=== PATIENT | male | born 1945 | race Caucasian/White ===

== ENCOUNTER 2017-08-07 14:36 | Observation (INO) ==
[2017-08-07 15:23] LABS: Basophils % 0.3 % (0.1-2.0); Eosinophils # 0.4 K/mm3 (0.0-0.4); Eosinophils % 6.6 % (0.1-12.0); Hematocrit 50.7 % (42.0-52.0); Hemoglobin 16.6 g/dL (14.1-18.0); Lymphocytes # 0.3 K/mm3 (0.7-4.5); Lymphocytes % 5.8 K/mm3 (10-50); Mean Corpuscular HGB Conc 32.8 g/dL (31.8-35.4); Mean Corpuscular Hemoglobin 29.2 pg (27.0-31.2); Mean Corpuscular Volume 89.2 fl (80-94); Mean Platelet Volume 7.8 fl (7.4-10.4); Monocytes # 0.2 K/mm3 (0.1-1.0); Neutrophils # 4.8 K/mm3 (1.8-7.8); Neutrophils % 83.3 % (37.0-80.0); Platelet Count 165 K/mm3 (142-424); Red Blood Count 5.69 M/mm3 (4.60-6.20); Red Cell Distribution Width 12.7 % (11.5-17.5); White Blood Count 5.8 K/mm3 (4.8-10.8)
[2017-08-07 15:29] LABS: Albumin Level 3.9 gm/dL (3.4-5.0); Anion Gap 16.6 mEq/L (5-15); Bilirubin,Total 0.9 mg/dL (0.2-1.0); Calcium 8.7 mg/dL (8.5-10.1); Globulin 3.9 gm/dl (1.3-3.2); Potassium 3.6 mmoL/L (3.5-5.1); Total Protein,Serum 7.8 gm/dL (6.4-8.2)
--- NOTE | 2017-08-07 16:50 | History & Physical Report ---
*Admission Date: 08/07/17 *Chief complaint: rash, fever and body aches *History of present illness: 72 year old white male with a history of HTN, hyperlipidemia and BPH presented to PCP office with generalized nonpruritic erythematous rash, body aches, fever and malaise. Patient reports acute onset of fever and body aches 4 days ago. Denies any ENT, respiratory, urinary or GI symptoms. He woke up today with a rash on his face, neck, trunk and extremities. Patient recently saw Dr. Meeks for FU on elevated PSA/BPH. He had a normal prostate biopsy last year. On 07/26 at FU he was started on Bactrim DS x 30 days in an attempt to decrease his PSA. UA at that time was normal. See urology note. In the office today, patient was noted to be febrile and in appeared uncomfortable. He was admitted to observation for further evaluation. [facility] History I have reviewed the patient's past medical history: Yes Medical History: Reports:: Hyperlipidemia, Hypertension Denies:: Cancer, Diabetes Mellitus Type 1, Diabetes Mellitus Type 2, MRSA Laterality Cases: Bilateral: Tonsillectomy Other Surgeries: Yes: Appendectomy Amputation: No Fractures: No - *Social History Educational Level: Completed High School Smoking Status: Former smoker Alcohol Intake: never Occupational Status: retired Housing: house - Psychiatric History Expresses thoughts of harming self/others: None Suicide Plan Description: No Plan *Family Hx:: Unable to obtain Review of Systems - Review of Systems Review of systems:: pertinent systems reviewed and negative unless documented below - Constitutional Reports body ache(s), Reports chills, Reports fever(s), Reports malaise, Reports weakness - Eyes Comments: burning eyes, redness - Integumentary/Breasts Reports rash Meds Home Medications Medication Instructions Recorded Confirmed Type cyanocobalamin (vit B-12) 1,000 1,000 mcg PO DAILY cap 06/18/17 08/07/17 History mcg capsule pravastatin 40 mg tablet 40 mg PO QHS 06/18/17 08/07/17 History tamsulosin 0.4 mg capsule 0.4 mg PO DAILY cap 06/18/17 08/07/17 History verapamil ER (SR) 120 mg 120 mg PO DAILY tab 06/18/17 08/07/17 History tablet,extended release Allergies Allergy/AdvReac Type Severity Reaction Status Date / Time sulfamethoxazole 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 [From Bactrim] Syndrome trimethoprim [From Bactrim] AdvReac 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 Exam Vital signs and Labs for Last 24 Hours: Temp Pulse Resp BP Pulse Ox 101.0 F H 94 H 20 145/85 93 L 08/07/17 15:05 08/07/17 15:05 08/07/17 15:05 08/07/17 15:05 08/07/17 15:05 Laboratory Results - last 24 hr 08/07/17 15:00: WBC 5.8, RBC 5.69, Hgb 16.6, Hct 50.7, MCV 89.2, MCH 29.2, MCHC 32.8, RDW 12.7, Plt Count 165, MPV 7.8, Neut % (Auto) 83.3 H, Lymph % (Auto) 5.8 L, [place] % (Auto) 4.0, Eos % (Auto) 6.6, Baso % (Auto) 0.3, Neut # (Auto) 4.8 , Lymph # (Auto) 0.3 L, [place] # (Auto) 0.2, Eos # (Auto) 0.4, Baso # (Auto) 0.0 08/07/17 15:00: Sodium 135 L, Potassium 3.6, Chloride 99, Carbon Dioxide 23, Anion Gap 16.6 H, BUN 15, Creatinine 1.37 H, Estimated Creat Clear 86, Estimated GFR 51 L, Est GFR ( Amer) 62, Glucose 109 H, Calcium 8.7, Magnesium 2.0, Total Bilirubin 0.9, AST 26, ALT 27, Alkaline Phosphatase 86, Total Creatine Kinase 173, Total Protein 7.8, Albumin 3.9, Globulin 3.9 H, Albumin/Globulin Ratio 1.0 L 08/07/17 15:00: Group A Strep Rapid Negative I & O for Last 24 hours: Intake & Output 08/05/17 08/06/17 08/07/17 08/08/17 11:59 11:59 11:59 11:59 Weight 268 lb 1 oz Narrative: Alert and oriented x3. Rate and rhythm regular. Lung sounds clear and equal. Abdomen soft and nontender. Erythematous maculopapular slightly raised lesions arranged in patches on trunk, extremities and face. Pharynx with erythema, no exudate. Nose clear. Sclera with mild erythema, conjunctiva clear. No cervical LAD. Neuro assessment unremarkable. H&P: Result - Labs Labs: Short CBC 08/07/17 Range/Units 15:00 WBC 5.8 (4.8-10.8) K/mm3 Hgb 16.6 (14.1-18.0) g/dL Hct 50.7 (42.0-52.0) % Plt Count 165 (142-424) K/mm3 BMP 08/07/17 15:00 Sodium 135 L Potassium 3.6 Chloride 99 Carbon Dioxide 23 BUN 15 Creatinine 1.37 H Glucose 109 H Calcium 8.7 Cardiac Enzymes 08/07/17 Range/Units 15:00 Total Creatine Kinase 173 (39-308) U/L Liver Function 08/07/17 Range/Units 15:00 Total Bilirubin 0.9 (0.2-1.0) mg/dL AST 26 (15-37) U/L ALT 27 (12-78) U/L Alkaline Phosphatase 86 (46-116) U/L Albumin 3.9 (3.4-5.0) gm/dL Assessment and Plan (1) Febrile illness, acute Current visit: Yes Status: Acute Category: Medical Code(s): R50.9 - Fever , unspecified (2) Erythematous rash Current visit: Yes Status: Acute Category: Medical Code(s): R21 - Rash and other nonspecific skin eruption (3) Dehydration Current visit: Yes Status: Acute Category: Medical Code(s): E86.0 - Dehydration - Assessment and plan all Dx Assessment and Plan for all problems:: Will obtain johnson cultures, CXR, UA and throat cultures to evaluate for underlying pathology. Normal saline infusions for dehydration. I am concerned this is a reaction to the Bactrim. Solu-medrol ordered. Explained this is most likely the etiology of his symptoms; however viral illness is also a possibility. Bactrim discontinued and added to allergy list.
[2017-08-07 18:16] LABS: Microscopic, Urine URINE MICROSCOPIC (MICROSCOPIC)
[2017-08-07 18:18] LABS: Appearance,Urine SL CLOUDY (Clear); Bilirubin,Urine Negative (Negative); Blood, Urine 2+ (Negative); Color,Urine YELLOW (Yellow); Glucose,Urine (UA) Negative (Negative); Ketones,Urine Negative (Negative); Leukocyte Esterase,Urine Negative (Negative); Protein,Urine TRACE (Negative); Specific Gravity, Urine >= 1.030 (1.005-1.030); Urobilinogen,Urine 0.2 EU/dl (0.2)
[2017-08-07 18:23] LABS: Squamous Epithelial Cell,Urine Occasional #/hpf (0-5)
[2017-08-07 18:25] LABS: Bacteria,Urine 2+ /lpf; Mucus,Urine 2+ /lpf
--- NOTE | 2017-08-08 07:28 | Pharmacy Consult Notes ---
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 trimethoprim [From Bactrim] Adverse Reaction (Severe, Verified 08/07/17 16:16) Falcon-Evelio Syndrome Height: 1.88 m Weight: 121.591 kg Patient Problems: Current Active Problems Febrile illness, acute (Acute) Erythematous rash (Acute) Dehydration (Acute) - VTE Risk Labs: VTE Related Lab Results Hgb 16.6 g/dL (14.1-18.0) 08/07/17 15:00 Hct 50.7 % (42.0-52.0) 08/07/17 15:00 Plt Count 165 K/mm3 (142-424) 08/07/17 15:00 BUN 15 mg/dL (7-18) 08/07/17 15:00 Creatinine 1.37 mg/dL (0.70-1.30) H 08/07/17 15:00 Estimated Creat Clear 86 mL/min (0-300) 08/07/17 15:00 Was VTE Risk Assessment Performed: Yes VTE Score: 1 VTE Risk Level: Very Low Risk - Prophylaxis VTE Prophylaxis Ordered?: Yes Types of VTE Prophylaxis: TEDS Knee High Location of Applied Device: Bilateral Lower Extremeties - VTE Diagnosis Confirmed Treatment or plan recommended: Continue Current Treatment
[2017-08-08 07:42] VITALS: BP 132/95
--- NOTE | 2017-08-08 08:21 | Progress Note ---
Internal Medicine - PN: Subj *Date: 08/08/17 *Time: 08:18 Interval history: No events overnight. Feels very well this morning return of appetite. No pain. Rash is improved. Exam Vital signs and Labs for Last 24 Hours: Temp Pulse Resp BP Pulse Ox 97.6 F 70 20 132/95 97 08/08/17 07:41 08/08/17 07:41 08/08/17 07:41 08/08/17 07:41 08/08/17 07:41 Laboratory Results - last 24 hr 08/07/17 15:00: WBC 5.8, RBC 5.69, Hgb 16.6, Hct 50.7, MCV 89.2, MCH 29.2, MCHC 32.8, RDW 12.7, Plt Count 165, MPV 7.8, Neut % (Auto) 83.3 H, Lymph % (Auto) 5.8 L, [place] % (Auto) 4.0, Eos % (Auto) 6.6, Baso % (Auto) 0.3, Neut # (Auto) 4.8 , Lymph # (Auto) 0.3 L, [place] # (Auto) 0.2, Eos # (Auto) 0.4, Baso # (Auto) 0.0 08/07/17 15:00: Sodium 135 L, Potassium 3.6, Chloride 99, Carbon Dioxide 23, Anion Gap 16.6 H, BUN 15, Creatinine 1.37 H, Estimated Creat Clear 86, Estimated GFR 51 L, Est GFR ( Amer) 62, Glucose 109 H, Calcium 8.7, Magnesium 2.0, Total Bilirubin 0.9, AST 26, ALT 27, Alkaline Phosphatase 86, Total Creatine Kinase 173, Total Protein 7.8, Albumin 3.9, Globulin 3.9 H, Albumin/Globulin Ratio 1.0 L 08/07/17 15:00: Group A Strep Rapid Negative 08/07/17 18:00: Urine Color Yellow, Urine Appearance Sl cloudy, Urine pH 6.0, Ur Specific [place] >= 1.030, Urine Protein Trace, Urine Glucose (UA) Negative, Urine Ketones Negative, Urine Blood 2+, Urine Nitrate Negative, Urine Bilirubin Negative, Urine Urobilinogen 0.2, Ur Leukocyte Esterase Negative, Urine RBC 3-5 , Urine WBC None, Ur Squamous Epith Cells Occasional, Urine Bacteria 2+, Urine Mucus 2+ I & O for Last 24 hours: Intake & Output 08/05/17 08/06/17 08/07/17 08/08/17 11:59 11:59 11:59 11:59 Intake Total 2818 / 2818 Output Total 350 / 350 Balance 2468 / 2468 Weight 268 lb 1 oz Microbiology Reports for the Last 24 Hours: Microbiology 08/07/17 15:00 Throat Group A Streptococcus Screen (CAMILO) - Preliminary Narrative: Pleasant, alert and oriented x3, up on bedside and has eaten 100% of his breakfast. Mucous membranes are intact. Heart with RRR, lungs clear. Abdomen soft with normal bowel sounds. Able to move all extremities, no edema. Rash is still diffuse, most concentrated on the trunk but also present on the extremities, erythematous, macular. Assessment and Plan (1) Febrile illness, acute Current visit: Yes Status: Acute Category: Medical Code(s): R50.9 - Fever , unspecified (2) Erythematous rash Current visit: Yes Status: Acute Category: Medical Code(s): R21 - Rash and other nonspecific skin eruption (3) Dehydration Current visit: Yes Status: Acute Category: Medical Code(s): E86.0 - Dehydration - Assessment and plan all Dx Assessment and Plan for all problems:: Stop IVF. Repeat labs this morning. Continue IV steroids. May be able to DC home late this afternoon on oral steroids if he remains afebrile.
[2017-08-08 08:39] LABS: Basophils % 0.3 % (0.1-2.0); Eosinophils % 0.3 % (0.1-12.0); Hematocrit 49.4 % (42.0-52.0); Hemoglobin 15.4 g/dL (14.1-18.0); Lymphocytes # 0.5 K/mm3 (0.7-4.5); Mean Corpuscular HGB Conc 31.2 g/dL (31.8-35.4); Mean Corpuscular Hemoglobin 28.7 pg (27.0-31.2); Mean Corpuscular Volume 91.9 fl (80-94); Mean Platelet Volume 8.1 fl (7.4-10.4); Monocytes # 0.1 K/mm3 (0.1-1.0); Monocytes % 1.4 % (1.7-9.3); Neutrophils # 4.9 K/mm3 (1.8-7.8); Platelet Count 149 K/mm3 (142-424); Red Blood Count 5.38 M/mm3 (4.60-6.20); Red Cell Distribution Width 12.6 % (11.5-17.5); White Blood Count 5.5 K/mm3 (4.8-10.8)
[2017-08-08 08:42] LABS: Anion Gap 16.4 mEq/L (5-15); Calcium 8.7 mg/dL (8.5-10.1); Potassium 4.4 mmoL/L (3.5-5.1)
[2017-08-08 12:46] LABS: Lymphocytes % 5 % (10-50); Monocytes % 1 % (2-9); Neutrophils % 87 % (42-76); Total Cells Counted 100
[2017-08-08 12:48] LABS: RBC Morphology Normal
--- NOTE | 2017-08-08 13:41 | Discharge Summary ---
General - General Admission date:: 08/07/17 Discharge date: 08/08/17 HPI HPI: 72 year old white male with a history of HTN, hyperlipidemia and BPH presented to PCP office with generalized nonpruritic erythematous rash, body aches, fever and malaise. Patient reports acute onset of fever and body aches 4 days ago. Denies any ENT, respiratory, urinary or GI symptoms. He woke up today with a rash on his face, neck, trunk and extremities. Patient recently saw Dr. Meeks for FU on elevated PSA/BPH. He had a normal prostate biopsy last year. On 07/26 at FU he was started on Bactrim DS x 30 days in an attempt to decrease his PSA. UA at that time was normal. See urology note. In the office today, patient was noted to be febrile and in appeared uncomfortable. He was admitted to observation for further evaluation. Hospital Course Hospital Course: Bactrim was discontinued, johnson-culture obtained and IV steroids initiated. Labs were unremarkable other than a mild dehydration with creatinine 1.3. He was hydrated overnight and this morning feels much better with some improvement in his rash, improved appetite and no new symptoms. He will be discharged on PO prednisone, holding all antibiotics until follow-up next week. We will contact Dr Meeks at FU and discuss need for alternative antibiotic once rash is completely resolved. Objective Vital signs: Temp Pulse Resp BP Pulse Ox 97.6 F 70 20 132/95 97 08/08/17 07:41 08/08/17 07:41 08/08/17 07:41 08/08/17 07:41 08/08/17 07:41 Narrative: Pleasant, alert and oriented x 3. Heart with RRR. Lungs clear. Abdomen is soft, NT/ND, BS present. No edema. Diffuse erythematous macular rash but no desquamation and no oral or occular lesions. Results Labs on day of discharge: Labs from last 24 hours 08/08/17 08/08/17 08/07/17 08:30 08:30 18:00 WBC 5.5 RBC 5.38 Hgb 15.4 Hct 49.4 MCV 91.9 MCH 28.7 MCHC 31.2 L RDW 12.6 Plt Count 149 MPV 8.1 Neut % (Auto) 89.0 H Lymph % (Auto) 9.0 L [place] % (Auto) 1.4 L Eos % (Auto) 0.3 Baso % (Auto) 0.3 Neut # (Auto) 4.9 Lymph # (Auto) 0.5 L [place] # (Auto) 0.1 Eos # (Auto) 0.0 Baso # (Auto) 0.0 Total Counted 100 Neutrophils % (Manual) 87 H Band Neutrophils % 6.0 Lymphocytes % (Manual) 5 L Atypical Lymphs % 1.0 Monocytes % (Manual) 1 L Platelet Estimate Normal RBC Morphology Normal Sodium 139 Potassium 4.4 D Chloride 102 Carbon Dioxide 25 Anion Gap 16.4 H BUN 16 Creatinine 1.29 Estimated Creat Clear 92 Estimated GFR 55 L Est GFR ( Amer) 67 Glucose 258 H D Calcium 8.7 Magnesium Total Bilirubin AST ALT Alkaline Phosphatase Total Creatine Kinase Total Protein Albumin Globulin Albumin/Globulin Ratio Urine Color Yellow Urine Appearance Sl cloudy Urine pH 6.0 Ur Specific [place] >= 1.030 Urine Protein Trace Urine Glucose (UA) Negative Urine Ketones Negative Urine Blood 2+ Urine Nitrate Negative Urine Bilirubin Negative Urine Urobilinogen 0.2 Ur Leukocyte Esterase Negative Urine RBC 3-5 Urine WBC None Ur Squamous Epith Cells Occasional Urine Bacteria 2+ Urine Mucus 2+ Group A Strep Rapid 08/07/17 08/07/17 08/07/17 15:00 15:00 15:00 WBC 5.8 RBC 5.69 Hgb 16.6 Hct 50.7 MCV 89.2 MCH 29.2 MCHC 32.8 RDW 12.7 Plt Count 165 MPV 7.8 Neut % (Auto) 83.3 H Lymph % (Auto) 5.8 L [place] % (Auto) 4.0 Eos % (Auto) 6.6 Baso % (Auto) 0.3 Neut # (Auto) 4.8 Lymph # (Auto) 0.3 L [place] # (Auto) 0.2 Eos # (Auto) 0.4 Baso # (Auto) 0.0 Total Counted Neutrophils % (Manual) Band Neutrophils % Lymphocytes % (Manual) Atypical Lymphs % Monocytes % (Manual) Platelet Estimate RBC Morphology Sodium 135 L Potassium 3.6 Chloride 99 Carbon Dioxide 23 Anion Gap 16.6 H BUN 15 Creatinine 1.37 H Estimated Creat Clear 86 Estimated GFR 51 L Est GFR ( Amer) 62 Glucose 109 H Calcium 8.7 Magnesium 2.0 Total Bilirubin 0.9 AST 26 ALT 27 Alkaline Phosphatase 86 Total Creatine Kinase 173 Total Protein 7.8 Albumin 3.9 Globulin 3.9 H Albumin/Globulin Ratio 1.0 L Urine Color Urine Appearance Urine pH Ur Specific [place] Urine Protein Urine Glucose (UA) Urine Ketones Urine Blood Urine Nitrate Urine Bilirubin Urine Urobilinogen Ur Leukocyte Esterase Urine RBC Urine WBC Ur Squamous Epith Cells Urine Bacteria Urine Mucus Group A Strep Rapid Negative Preliminary micro results at discharge 08/07/17 15:00 Group A Streptococcus Screen (CAMILO) - Preliminary Throat DS: Diagnosis - Discharge Diagnosis (1) Febrile illness, acute Status: Acute (2) Erythematous rash Status: Acute (3) Dehydration Status: Acute Discharge Plan - Patient Discharge Instructions ACTIVITY: Continue current activity DIET: regular diet Patient Instructions: Dehydration - Follow up Plan Follow up with: Shayy Allison APRN [Nurse Practitioner] - 08/13/17 Disposition: Home, Self-Alf Medications: Home Medications Medication Instructions Recorded Confirmed Type cyanocobalamin (vit B-12) 1,000 1,000 mcg PO DAILY cap 06/18/17 08/07/17 History mcg capsule verapamil ER (SR) 120 mg 120 mg PO DAILY tab 06/18/17 08/07/17 History tablet,extended release Atorvastatin Calcium [Atorvastatin 80 mg PO HS 08/08/17 08/08/17 History 80mg Tab] Tamsulosin HCl [Flomax 0.4mg 0.4 mg PO DAILY 08/08/17 08/08/17 History capsule] Prescriptions/Medication Reconciliation: New predniSONE [Prednisone 20mg Tab] 20 mg PO BID 4 Days #6 tab Continue verapamil ER (SR) 120 mg tablet,extended release 120 mg PO DAILY tab cyanocobalamin (vit B-12) 1,000 mcg capsule 1,000 mcg PO DAILY cap Tamsulosin HCl [Flomax 0.4mg capsule] 0.4 mg PO DAILY Atorvastatin Calcium [Atorvastatin 80mg Tab] 80 mg PO HS
== END 2017-08-08 14:05 | disposition home or self-care (01) ==
LOC: 2ND
PROVIDERS: ADMIT Internal Medicine Adolescent Medicine; ATTEND Internal Medicine Adolescent Medicine

== ENCOUNTER → 2017-12-03 10:14 | Outpatient (POV) | payer MEDICARE, SELFPAY | PROVIDERS: Family Provider Internal Medicine Adolescent Medicine; PCP Internal Medicine Adolescent Medicine; Visit Provider Dermatology | DX: Z00.00 Encounter for general adult medical examination without abnormal findings (principal) ==

== ENCOUNTER → 2018-06-03 10:29 | Outpatient (POV) | payer MEDICARE, SELFPAY | PROVIDERS: Visit Provider Dermatology | DX: Z00.00 Encounter for general adult medical examination without abnormal findings (principal) ==

== ENCOUNTER → 2020-09-28 10:44 | Outpatient (CLI) | payer MEDICARE, SELFPAY ==
[2020-09-28 11:04] LABS: Basophils # 0.1 K/mm3 (0-0.2); Basophils % 0.8 % (0.1-2.0); Eosinophils # 0.3 K/mm3 (0.0-0.4); Eosinophils % 3.6 % (0.1-12.0); Hematocrit 47.9 % (42.0-52.0); Lymphocytes # 1.3 K/mm3 (0.7-4.5); Lymphocytes % 18.1 % (10-50); Mean Corpuscular HGB Conc 33.4 g/dL (31.8-35.4); Mean Corpuscular Hemoglobin 30.5 pg (27.0-31.2); Mean Corpuscular Volume 91.3 fl (80-94); Mean Platelet Volume 7.4 fl (7.4-10.4); Monocytes # 0.5 K/mm3 (0.1-1.0); Monocytes % 6.7 % (1.7-9.3); Neutrophils # 5.1 K/mm3 (1.8-7.8); Neutrophils % 70.7 % (37.0-80.0); Platelet Count 240 K/mm3 (142-424); Red Blood Count 5.25 M/mm3 (4.60-6.20); Red Cell Distribution Width 13.3 % (11.5-17.5); White Blood Count 7.2 K/mm3 (4.8-10.8)
[2020-09-28 11:17] LABS: Hemoglobin A1C 6.6 % (4.0-6.0)
[2020-09-28 11:43] LABS: Alanine Aminotransferase 30 U/L (12-78); Albumin Level 4.7 g/dl (3.5-5.0); Albumin/Globulin Ratio 1.6 (1.1-1.8); Alkaline Phosphatase 82 U/L (38-126); Anion Gap 15.6 mEq/L (5-15); Aspartate Amino Transferase 36 U/L (17-59); Bilirubin,Total 1.2 mg/dl (0.2-1.3); Blood Urea Nitrogen 14 mg/dl (9-20); Calcium 9.4 mg/dl (8.4-10.2); Carbon Dioxide 30 mmol/L (22.0-30.0); Chloride 103 mmol/L (98-107); Chol/HDL Ratio 3.5 (1-3.5); Cholesterol 122 mg/dl (140-200); Estimated Glomerular Filt Rate 66 ml/min (>60); GFR (African American) 79 ML/MIN (>60); Globulin 2.9 g/dL (1.3-3.2); Glucose 133 mg/dl (74-100); HDL Cholesterol 35 mg/dl (40-60); Potassium 4.6 mmoL/L (3.5-5.1); Sodium 144 mmol/L (136-145); Total Protein,Serum 7.6 g/dl (6.3-8.2); Triglycerides 97 mg/dl (30-150); VLDL Cholesterol 19 mg/dL (0-40)
[2020-09-28 11:54] LABS: Direct LDL Cholesterol 68.87 mg/dL (100-129)
== END ==
PROVIDERS: Visit Provider Internal Medicine Adolescent Medicine
DX: E78.5 Hyperlipidemia, unspecified (principal); Z86.39 Personal history of other endocrine, nutritional and metabolic disease
CPT/HCPCS: 36415; 80053; 80061; 83036; 85025

== ENCOUNTER → 2021-01-30 09:27 | Outpatient (CLI) | payer MEDICARE, SELFPAY | PROVIDERS: Visit Provider Surgery | DX: Z01.812 Encounter for preprocedural laboratory examination (principal); Z20.822 Contact with and (suspected) exposure to COVID-19; Z12.11 Encounter for screening for malignant neoplasm of colon | CPT/HCPCS: C9803; U0003; U0005 ==

== ENCOUNTER 2021-02-01 08:26 | Day surgery (SDC) | payer MEDICARE, SELFPAY ==
[2021-01-30 08:48] VITALS: BMI 35.9
[2021-02-01 08:47] VITALS: BP 149/86; PULSE 63; RESP 18; TEMP 36.9; O2SAT 94
--- NOTE | 2021-02-01 09:02 | HMH.ANESCL ---
[facility] Anesthesia Checklist - Patient Identification Patient Identification: Arm Band, Verbal (Name & ) - Structural Data Admitted From: Home Planned Operative Procedure/s: Colonoscopy Consent for Planned Operative Procedure(s) Verified: Yes Verified Documents: Surgical Consent - NPO Status Verified Time NPO: 05:00 - Chart Verification Results Verified: None - Cardiovascular Assessment Heart Sounds: S1 & S2 Pulse Rhythm: Regular - Airway Assessment C-Spine Mobility Assessed: Yes TMJ Mobility Assessed: Yes Dentition: Good Dentition - Neurological Assessment Level of Consciousness: Awake, Alert, Appropriate - Anesthesia Plan Anesthesia Risk discussed: Yes ASA Class: II Anesthesia Type: General [facility] History I have reviewed the patient's past medical history: Yes Medical History: Reports:: Diabetes Mellitus Type 2, Hyperlipidemia, Hypertension Denies:: Cancer, Diabetes Mellitus Type 1, Internal Pacemaker, MRSA, Seizures *Have you ever received a pneumonia vaccine?: Yes *Have you received a flu vaccine this season?: Yes Anesthesia experience/problems:: none Laterality Cases: Bilateral: Tonsillectomy Other Surgeries: Yes: Appendectomy, Colonoscopy, Other. No: Pacemaker Amputation: No Fractures: No - *Social History Last grade of school completed: High school graduate Smoking Status: Former smoker #Yrs smoked (if former smoker): 10 Alcohol Intake: never Substance Use Type: denies use *Occupational Status:: retired Housing: house Household Members: spouse *Travel in the last 8 weeks: None Family Hx:: Unable to obtain
[2021-02-01 09:05] VITALS: O2SAT 94
[2021-02-01 10:05] VITALS: BP 103/66; PULSE 90; RESP 26; TEMP 36.4; O2SAT 90
--- NOTE | 2021-02-01 10:05 | P.PCN_ITS ---
- Procedure: Date: 02/01/21 Patient Date of :: 1945 Procedure Performed:: Total colonoscopy with multiple polypectomies using biopsy forceps and cold snare Indications:: Patient is a 75-year-old male referred by Dr. Rocky Calabrese for colonoscopy due to positive Cologuard. Review of the record reveals that the patient had a colonoscopy by Dr. Miguel Rodriguez on 09/26/2011 and had 11 polyps removed. He had follow-up colonoscopy on 09/16/2013 and had 2 polyps removed. Recent Cologuard was reportedly positive. He denies symptoms of rectal bleeding or abdominal pain. Performing Provider:: Ector Gill MD Referring Provider:: Rocky Calabrese MD Sedation:: MAC sedation Procedure:: Patient was taken to endoscopy procedure room. He was positioned lateral decubitus position. Adequate intravenous sedation was achieved with anesthesia titration of propofol. Variable stiffness Olympus colonoscope was inserted via the anus. Was advanced to the cecum. Colonic preparation was fair but adequate visualization was achieved with irrigation and suctioning. There was some particulate liquid stool throughout the colon. Ileocecal valve and appendiceal orifice were clearly identified. Colonoscope was slowly withdrawn through the colon with careful surveillance. In the distal transverse colon there was a tiny diminutive polyp removed with cold snare. Just distal to this there was a moderately large ridge polyp. This was removed in a piecemeal fashion using cold snare. After completion polypectomy Macie ink was injected to sadaf the ar ea for future reference. Small polyp was encountered at the splenic flexure removed with cold snare. In the descending colon there was a small diminutive polyp removed with cold snare. Sigmoid colon revealed small polyp removed with cold snare. In the rectosigmoid region and rectal area there were several hyperplastic appearing polyps. These were removed with a variety of technique in the rectosigmoid region removing 5 consisting of 2 with the snare and 3 with biopsy forceps. Rectal polyp was removed with cold snare. He did have quite significant appreciable left-sided diverticulosis. Retroflexion revealed no evidence of any pathologic internal hemorrhoids. Colonoscope was withdrawn. Findings:: Multiple polyps as noted above. Most concerning is the distal transverse relatively large ridge polyp which was marked with Macie ink. Multiple additional minor polyps and likely hyperplastic appearing polyps. Significant left-sided diverticulosis. Recommendations:: Given the degree of polyps and to evaluate for early recurrence of the distal transverse colon polyp and due to the suboptimal preparation recommend repeat colonoscopy likely in 1 year Complications:: None immediately apparent Estimated blood obtained (mL): 3
[2021-02-01 10:15] VITALS: BP 119/82; PULSE 90; RESP 18; O2SAT 90
[2021-02-01 10:25] VITALS: BP 136/78; PULSE 78; RESP 16; O2SAT 94
[2021-02-01 10:35] VITALS: BP 126/72; PULSE 82; RESP 16; O2SAT 95
[2021-11-23 10:55] LABS: POC Glucose,Bedside 118 (70-110)
== END 2021-02-01 10:37 | disposition home or self-care (01) ==
LOC: OUTP 08:30
PROVIDERS: PCP Internal Medicine Adolescent Medicine; Visit Provider Surgery
PROC: 0DJD8ZZ Inspection of Lower Intestinal Tract, Via Natural or Artificial Opening Endoscopic (ICD-10-PCS; principal; 2021-02-01 09:30)
DX: K62.1 Rectal polyp (principal); K63.5 Polyp of colon; K57.32 Diverticulitis of large intestine without perforation or abscess without bleeding; Z86.010 Personal history of colon polyps; E11.9 Type 2 diabetes mellitus without complications; E78.5 Hyperlipidemia, unspecified; I10 Essential (primary) hypertension; Z90.49 Acquired absence of other specified parts of digestive tract; Z87.891 Personal history of nicotine dependence; Z88.2 Allergy status to sulfonamides; Z79.84 Long term (current) use of oral hypoglycemic drugs; Z79.899 Other long term (current) drug therapy
CPT/HCPCS: 45381; 45385; 82962; 88305

== ENCOUNTER → 2021-05-06 10:13 | Outpatient (CLI) | payer MEDICARE, SELFPAY ==
[2021-05-06 10:50] LABS: Basophils # 0.1 K/mm3 (0-0.2); Basophils % 1.2 % (0.1-2.0); Eosinophils # 0.2 K/mm3 (0.0-0.4); Eosinophils % 2.8 % (0.1-12.0); Hematocrit 47.9 % (42.0-52.0); Hemoglobin 15.9 g/dL (14.1-18.0); Lymphocytes # 1.1 K/mm3 (0.7-4.5); Lymphocytes % 15.9 % (10-50); Mean Corpuscular HGB Conc 33.2 g/dL (31.8-35.4); Mean Corpuscular Hemoglobin 30.7 pg (27.0-31.2); Mean Corpuscular Volume 92.4 fl (80-94); Mean Platelet Volume 7.9 fl (7.4-10.4); Monocytes # 0.4 K/mm3 (0.1-1.0); Monocytes % 6.6 % (1.7-9.3); Neutrophils % 73.5 % (37.0-80.0); Platelet Count 267 K/mm3 (142-424); Red Blood Count 5.18 M/mm3 (4.60-6.20); Red Cell Distribution Width 13.3 % (11.5-17.5); White Blood Count 6.7 K/mm3 (4.8-10.8)
[2021-05-06 11:29] LABS: Alanine Aminotransferase 25 U/L (12-78); Albumin Level 4.7 g/dl (3.5-5.0); Albumin/Globulin Ratio 1.8 (1.1-1.8); Alkaline Phosphatase 65 U/L (38-126); Anion Gap 10.9 mEq/L (5-15); Aspartate Amino Transferase 30 U/L (17-59); Bilirubin,Total 0.8 mg/dl (0.2-1.3); Blood Urea Nitrogen 12 mg/dl (9-20); Calcium 9.1 mg/dl (8.4-10.2); Carbon Dioxide 29 mmol/L (22.0-30.0); Chloride 103 mmol/L (98-107); Estimated Glomerular Filt Rate 73 ml/min (>60); GFR (African American) 88 ML/MIN (>60); Globulin 2.6 g/dL (1.3-3.2); Glucose 105 mg/dl (74-100); Potassium 3.9 mmoL/L (3.5-5.1); Sodium 139 mmol/L (136-145); Total Protein,Serum 7.3 g/dl (6.3-8.2)
[2021-05-06 11:57] LABS: Hemoglobin A1C 6.6 % (4.0-6.0)
== END ==
PROVIDERS: Visit Provider Nurse Practitioner Family
DX: E11.9 Type 2 diabetes mellitus without complications (principal); L30.9 Dermatitis, unspecified; N40.0 Benign prostatic hyperplasia without lower urinary tract symptoms; Z79.84 Long term (current) use of oral hypoglycemic drugs
CPT/HCPCS: 36415; 80053; 83036; 85025

== ENCOUNTER → 2021-08-01 09:14 | Outpatient (POV) | payer MEDICARE, SELFPAY | PROVIDERS: Visit Provider Dermatology | DX: Z00.00 Encounter for general adult medical examination without abnormal findings (principal) ==

== ENCOUNTER → 2022-04-24 13:24 | Outpatient (POV) | payer MEDICARE, SELFPAY | PROVIDERS: Visit Provider Dermatology | DX: Z00.00 Encounter for general adult medical examination without abnormal findings (principal) ==

== ENCOUNTER → 2022-06-20 09:07 | Outpatient (CLI) | payer MEDICARE, SELFPAY ==
--- NOTE | 2022-06-20 09:16 | XR_ITS ---
FINAL REPORT CLINICAL HISTORY: BRONCHOPNEUMONIA FINDINGS: Two views of the chest were obtained. The heart size and pulmonary vascularity are within normal limits. The mediastinum is normal. No acute pulmonary abnormality is identified. There is no pneumothorax. The bony thorax is intact. IMPRESSION: No active cardiopulmonary disease. Reviewed, Interpreted and Dictated by Ector Long III, MD Transcribed by Kristin Shah Authenticated and [facility]
== END ==
PROVIDERS: PCP Internal Medicine Adolescent Medicine; Visit Provider Internal Medicine Adolescent Medicine
DX: J18.0 Bronchopneumonia, unspecified organism (principal)
CPT/HCPCS: 71046

== ENCOUNTER → 2022-07-19 08:23 | Outpatient (CLI) | payer MEDICARE, SELFPAY ==
--- NOTE | 2022-07-19 08:44 | US_ITS ---
FINAL REPORT TECHNIQUE: Ultrasound images of the abdominal aorta were obtained. CLINICAL HISTORY: H/O NICOTINE DEPENDENCE COMPARISON: none FINDINGS: ULTRASOUND OF THE ABDOMINAL AORTA The aorta measures up to 2.1 cm. The bifurcation is normal. IMPRESSION: No evidence of abdominal aortic aneurysm. Reviewed, Interpreted and Dictated by Ector Long III, MD Transcribed by Rain Toth Authenticated and [facility]
== END ==
PROVIDERS: PCP Internal Medicine Adolescent Medicine; Visit Provider Internal Medicine Adolescent Medicine
DX: Z87.891 Personal history of nicotine dependence (principal)
CPT/HCPCS: 76705